=== PATIENT | female | born 1970 | race Caucasian/White ===

== ENCOUNTER 2018-11-09 14:49 | Emergency (ER) | payer OTHER ==
--- NOTE | 2018-11-09 15:02 | PDOC ---
Rapid Medical Evaluation Time Seen by Provider: 11/09/18 15:00 Medical Evaluation: 11/09/18 15:00 I have performed a brief in-person evaluation of this patient. The patient presents with a chief complaint of: back pain with radiculopathy x3 days Pertinent physical exam findings: no gross deficits, ambulates I have ordered the following: nothing The patient will proceed to the ED for further evaluation. Discharge Disposition - Diagnosis Lumbar radiculopathy - Referrals - Patient Instructions - Post Discharge Activity
[2018-11-09 15:04] VITALS: BP 128/75; PULSE 72; TEMP 98.5; BMI 32.3
[2018-11-09] MEDS ORDERED: CYCLOBENZAPRINE HCL 10 MG TABLET (FP) PO ONE (15:21)
[2018-11-09] MEDS ORDERED: IBUPROFEN 600 MG TABLET (FP) PO ONE ×2 (15:21→15:24)
[2018-11-09] MEDS ORDERED: LIDOCAINE 5% TOPICAL PATCH TP ONE (15:22)
[2018-11-09] MEDS ORDERED: CYCLOBENZAPRINE HCL 10 MG TABLET (FP) ONE (15:24)
[2018-11-09] MEDS ORDERED: LIDOCAINE 5% TOPICAL PATCH ONE (15:24)
--- NOTE | 2018-11-09 15:28 | PDOC ---
History of Present Illness - General Chief Complaint: Back Pain Stated Complaint: BACK PAIN Time Seen by Provider: 11/09/18 15:00 History Source: Patient Exam Limitations: No Limitations Past History - Past Medical History Allergies/Adverse Reactions: Allergies Allergy/AdvReac Type Severity Reaction Status Date / Time No Known Allergies Allergy Verified 11/09/18 15:00 Home Medications: Ambulatory Orders Cyclobenzaprine HCl [Flexeril 10 mg] 10 mg PO BID PRN #20 tablet 11/09/18 Lidocaine 5% Patch [Lidoderm -] 1 patch TP DAILY #30 patch 11/09/18 COPD: No - Suicide/Smoking/Psychosocial Hx Smoking History: Never smoked Have you smoked in the past 12 months: No Information on smoking cessation initiated: No Hx Alcohol Use: No Drug/Substance Use Hx: No *Physical Exam - Vital Signs Last Vital Signs Temp Pulse Resp BP Pulse Ox 98.5 F 72 18 128/75 95 11/09/18 15:01 11/09/18 15:01 11/09/18 15:01 11/09/18 15:01 11/09/18 15:01 - Physical Exam General Appearance: No: Apparent Distress Neck: positive: Supple Respiratory/Chest: positive: Lungs Clear, Normal Breath Sounds. negative: Respiratory Distress Cardiovascular: positive: Regular Rhythm, Regular Rate, S1, S2. negative: Murmur Gastrointestinal/Abdominal: positive: Normal Bowel Sounds, Soft. negative: Tender, Distended, Guarding, Rebound Musculoskeletal: positive: Other (TTP along R lumbar paraspinal muscles, slight pain with flexion of spine). 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 Pain started after patient took shower and had bent down to pour water on herself. Denies lifting anything heavy, trauma, fever, sob, cp, abd pain, n/v, urinary complaints, numbness/tingling/weakness of extremities, bowel/bladder incontinence, numbness around groin Likely muscle strain Plan: motrin, flexeril, lido patch 11/09/18 15:28 *DC/Admit/Observation/Transfer Diagnosis at time of Disposition: Strain of lumbar paraspinal muscle Qualifiers: Encounter type: initial encounter Qualified Code(s): S39.012A - Strain of muscle, fascia and tendon of lower back, initial encounter - Discharge Dispostion Disposition: HOME Condition at time of disposition: Stable Decision to Admit order: No - Prescriptions Prescriptions: Cyclobenzaprine HCl [Flexeril 10 mg] 10 mg PO BID PRN #20 tablet PRN Reason: Muscle Spasms Lidocaine 5% Patch [Lidoderm -] 1 patch TP DAILY #30 patch - Referrals - Patient Instructions Printed Discharge Instructions: DI for Back Strain or Sprain Additional Instructions: Thank you for choosing [facility]. It was a pleasure taking care of you. You may take Motrin 600 mg every 6 hours by mouth as needed for mild to moderate pain. Take Motrin with food. Take Flexeril as needed for muscle spasms. This medication can also make you drowsy so please be cautious with driving or performing heavy physical work. Consider physical therapy Follow-up with your doctor in 2-3 days Return to the Emergency Department if your symptoms worsen or persist, you have fever, shortness of breath, chest pain, severe abdominal pain, vomiting, weakness of extremities, changes in walking, numbness around groin, unable to control bowel or bladder movements or other concerning symptoms. - Post Discharge Activity
[2018-11-09] MEDS ORDERED: LIDOCAINE PATCH REMOVAL MC SCH (22:00)
== END 2018-11-09 15:43 | disposition home or self-care (01) ==
LOC: JERFT 14:49
DX: S39.012A Strain of muscle, fascia and tendon of lower back, initial encounter (principal); X58.XXXA Exposure to other specified factors, initial encounter; Y93.89 Activity, other specified; Y92.89 Other specified places as the place of occurrence of the external cause
CPT/HCPCS: 99281-25